=== PATIENT | female | born 1970 | race American Indian/Alaskan Native ===

== ENCOUNTER 2017-06-16 14:28 | Outpatient (CLI) | payer BC ==
--- NOTE | 2017-06-16 15:42 | Mammography Report ---
Diagnostic left mammogram and targeted left breast ultrasound. History: Palpable lump in the left breast. Comparison studies are dated September 24, 2016 and August 04, 2016. Findings: The breast parenchyma is heterogeneously dense. In the upper right breast on the MLO projection, there is a focal parenchymal asymmetry in the area of palpable abnormality, but this demonstrates satisfactory effacement on spot compression image. A biopsy clip is noted in the lateral left breast. No architectural distortion or suspicious calcifications are seen. Ultrasound evaluation of the upper half of the left breast demonstrates no cystic or solid masses. Impression: No suspicious findings. BI-RADS code: 2. Recommendation: Annual screening.
== END 2017-06-16 14:29 | disposition home or self-care (01) ==
LOC: SPVWC 14:28
PROVIDERS: ATTEND Nurse Practitioner Women's Health
DX: N63 Unspecified lump in breast (principal)
CPT/HCPCS: 76642; G0206

== ENCOUNTER 2019-10-13 08:32 | Outpatient (CLI) | payer BC ==
--- NOTE | 2019-10-16 14:14 | Mammography Report ---
DIGITAL SCREENING MAMMOGRAM WITH CAD, 10/13/2019 INDICATION: Routine screening mammography. TECHNIQUE: Digital bilateral 2D mammography was obtained in the craniocaudal and mediolateral obliq ue projections. This examination was interpreted with the benefit of Computer-Aided Detection analysi s. COMPARISON: 08/04/2016 FINDINGS: Breast Density: The breasts are heterogeneously dense, which may obscure small masses. There is no evidence of dominant mass, suspicious calcifications or architectural distortion in eithe r breast. A left relatively central biopsy clip. IMPRESSION: No mammographic evidence of malignancy. Follow up recommendation: Routine yearly BI-RADS Category 2: Benign. A "normal" or negative report should not discourage follow up or biopsy of a clinically significant f inding. A written summary of these findings will be mailed to the patient. The patient will be entered into a mammography reporting system which will generate a reminder letter for the patient's next appointmen t at the appropriate interval. The [employer] recommends yearly mammograms starting at age 40 and continuing as l adriano as a woman is in good health. Breast MRI is recommended for women with an approximate 20-25% or greater lifetime risk of breast cancer, including women with a strong family history of breast or ova ngozi cancer or who have been treated for Hodgkin's disease. Signer Name: Donald Lau MD Signed: 10/16/2019 2:10 PM Workstation Name: [id number]
== END 2019-10-13 08:33 | disposition home or self-care (01) ==
LOC: SPVWC 08:32
PROVIDERS: ATTEND Nurse Practitioner Women's Health
DX: Z12.31 Encounter for screening mammogram for malignant neoplasm of breast (principal)
CPT/HCPCS: 77067

== ENCOUNTER 2020-12-30 11:28 | Outpatient (CLI) | payer OTHER ==
--- NOTE | 2020-12-31 09:33 | Mammography Report ---
DIGITAL SCREENING MAMMOGRAM WITH TOMOSYNTHESIS WITH CAD, 12/30/2020 CLINICAL INFORMATION / INDICATION: Routine Screening Mammography. TECHNIQUE: Digital bilateral 2D and 3D mammography with tomosynthesis was obtained in the craniocaud al and mediolateral oblique projections. Computer-Aided Detection (CAD) analysis was used for interp retation of this study. COMPARISON: 10/13/2019, 08/04/2016, 06/16/2017 FINDINGS: Breast Density: The breasts are heterogeneously dense, which may obscure small masses. No dominant mass, suspicious calcifications, or architectural distortion in the right breast. There i s a biopsy clip in the left breast at 6:00/retroareolar. There are 2 new areas of grouped microcalcif ications in the left breast. The first grouped calcifications are in the 12-1:00 position middle dept h. The second grouped calcifications are in the left breast at 10-11:00, posterior depth. Both areas will need to be further evaluated with magnification views. IMPRESSION: There are 2 new grouped areas of microcalcifications in the left breast. Left breast magn ification views are required for the 12:00 [id number]:00 calcifications. Follow up recommendation: Special View: Mag BI-RADS Category 0: Incomplete. Needs additional imaging evaluation and/or prior mammograms for annalisa garduno. A "normal" or negative report should not discourage follow up or biopsy of a clinically significant f inding. A written summary of these findings will be mailed to the patient. The patient will be entered into a mammography reporting system which will generate a reminder letter for the patient's next appointmen t at the appropriate interval. The [employer] recommends yearly mammograms starting at age 40 and continuing as l adriano as a woman is in good health. Breast MRI is recommended for women with an approximate 20-25% or greater lifetime risk of breast cancer, including women with a strong family history of breast or ova ngozi cancer or who have been treated for Hodgkin's disease. Signer Name: Roseline Brown MD Signed: 12/31/2020 9:28 AM Workstation Name: [id number]
== END 2020-12-30 11:29 | disposition home or self-care (01) ==
LOC: SPVWC 11:28
PROVIDERS: ATTEND Obstetrics & Gynecology
DX: Z12.31 Encounter for screening mammogram for malignant neoplasm of breast (principal)
CPT/HCPCS: 77063; 77067

== ENCOUNTER 2021-01-21 13:39 | Outpatient (CLI) | payer OTHER ==
--- NOTE | 2021-01-21 15:00 | Mammography Report ---
DIGITAL DIAGNOSTIC MAMMOGRAM WITH CAD CONVENTIONAL, 01/21/2021 CLINICAL INFORMATION / INDICATION: 2 new areas of grouped calcifications in the left breast on screen ing mammography. ABNORMAL MAMMOGRAM TECHNIQUE: Digital left mammographic imaging was performed. Magnification views were obtained. This examination was interpreted with the benefit of Computer-aided Detection analysis. COMPARISON: Bilateral mammography 12/30/20. FINDINGS: Breast Density: The breasts are heterogeneously dense, which may obscure small masses. There are 2 areas of grouped calcifications in the left breast which are coarse and heterogeneous on magnification views. The anterior cluster is located near the central axis and the posterior cluster is located superomedially. A left biopsy clip is again noted. IMPRESSION: 2 small areas of grouped calcifications in the left breast are both moderately suspicious and biopsy is recommended. Follow up recommendation: Biopsy BI-RADS Category 4: Suspicious for Malignancy. BI-RADS Category 4B-intermediate suspicion for maligna ncy. A "normal" or negative report should not discourage follow up or biopsy of a clinically significant f inding. A written summary of these findings will be mailed to the patient. The patient will be entered into a mammography reporting system which will generate a reminder letter for the patient's next appointmen t at the appropriate interval. According to the [employer], yearly mammograms are recommended starting at age 40 and continuing as long as a woman is in good health. Breast MRI is recommended for women with an katiana roximately 20-25% or greater lifetime risk of breast cancer, including women with a strong family his tory of breast or ovarian cancer and women who have been treated for Hodgkin's disease. Signer Name: Keith Lehman MD Signed: 01/21/2021 2:55 PM Workstation Name: [id number]
== END 2021-01-21 13:40 | disposition home or self-care (01) ==
LOC: SPVWC 13:39
PROVIDERS: ATTEND Nurse Practitioner Women's Health
DX: R92.1 Mammographic calcification found on diagnostic imaging of breast (principal)